=== PATIENT | male | born 1945 | race Caucasian/White ===

== ENCOUNTER 2020-06-21 21:42 | Emergency (ER) | payer SELFPAY ==
[2020-06-21 21:44] VITALS: BP 177/101; PULSE 95; RESP 20; TEMP 36.5; O2SAT 100
--- NOTE | 2020-06-21 21:59 | PC.NURSE ---
erp dr luo at bedside unable to obtain pulse. pt request slu instead of sandra.
--- NOTE | 2020-06-21 21:59 | ED.GENADULT ---
HPI - General Adult General Chief complaint: Extremity Problem,Nontraumatic Stated complaint: left leg pain Time Seen by Provider: 06/21/20 21:43 History of Present Illness HPI narrative: Patient is a 74-year-old male who presents the ER with sudden onset pain to the left calf. Began in the foot and radiates up into his left thigh. Patient cannot get comfortable. He applied BenGay to his calf and foot with no relief. Patient reports lower extremity is cold and tingly and discolored. Has not had similar issues in the past. Has not seen his primary care doctor in 10 years. Patient reports he cannot dorsiflex or plantarflex at the ankle. Related Data Home Medications Medication Instructions Recorded Confirmed No Home Medications 06/21/20 06/21/20 Allergies Allergy/AdvReac Type Severity Reaction Status Date / Time No Known Allergies Allergy Verified 06/21/20 21:49 Review of Systems Review of Systems: All systems reviewed & are unremarkable except as noted in HPI and below Constitutional: Constitutional: Denies chills, Denies fever(s) and Denies weakness Cardiovascular: Cardiovascular: Denies chest pain, Denies rapid heart rate and Denies radiating jaw, neck or arm pain Musculoskeletal: Comments: LLE pain Integumentary/Breasts: Comments: LLE pallor PMFSH Past Medical History Medical History (Updated 06/21/20 @ 23:22 by Nitesh Ann MD) Patient denies medical problems Surgical History Surgical History (Updated 06/21/20 @ 22:05 by Nitesh Ann MD) No history of previous surgery Exam Narrative: Exam Narrative: GENERAL: Well-appearing, well-nourished, and in no acute distress. HEAD: Normocephalic, atraumatic. ENT: Mucous membranes moist. CHEST: Clear to auscultation. No respiratory distress. HEART: Regular rate and rhythm. EXTREMITIES: Cool and pale left lower extremity when compared to the right below the knee. Unable to perform dorsiflexion plantarflexion left lower extremity. No dopplerable dorsalis pedis or posterior tibialis pulses. Faint popliteal pulse dopplered. Decreased sharp touch sensation over the dorsum of the foot as well as anterior her. SKIN: Warm, dry, no rash, with exception of the left lower extremity. NEURO: Alert and oriented x3. PSYCH: Normal mood and affect. Course Reevaluation(s) Reevaluation #1: I have called [facility] who is on diversion to the hospital and I have also contacted [facility]. I spoken with vascular surgeon there but the ER is also on diversion cannot accept any additional patients at this time. Patient is receiving heparin bolus as well as a heparin drip. He is being given morphine for pain. We will attempt to contact additional hospitals to accept this patient. While in the access line with [facility] I was able to confirm that both [facility] and [facility] would be unable to take this patient. Date: 06/21/20 Time: 22:17 Reevaluation #2: Mild decrease in pain after morphine and heparin. Reevaluation the foot shows a mottled purple appearance of the foot and side of right white. There is increased warmth and sensation to the her on the left side. Still without sensation over the dorsum of the foot. Very slight improvement in plantar flexion dorsiflexion. Date: 06/21/20 Time: 22:36 Reevaluation #3: [facility] has no beds and cannot accept the patient. Date: 06/21/20 Time: 22:56 Additional Reevaluation(s): 2313 - Patient has been accepted to [facility] by Dr. Kahn. I have also spoken with Dr. Meredith with vascular surgery who will care for the patient. 2326 - There is a minimum 2 hour wait for an ambulance, air medical transport is not flying due to weather, the patient is still with a pulseless foot with obvious evidence of ischemia. This is a time critical issue and I feel patient needs emergent transport so I have requested it. Additionally patient has an elevated troponin. He has no chest pain at any gareth
--- NOTE | 2020-06-21 22:02 | ECG_ITS ---
Measurements Intervals [place] Rate: 102 P: 38 UT: 195 QRS: -49 QRSD: 99 T: 125 QT: 365 QTc: 475 Interpretive Statements SINUS TACHYCARDIA CANNOT RULE OUT SEPTAL INFARCT, AGE INDETERMINATE LEFT ANTERIOR FASCICULAR BLOCK T WAVE ABNORMALITY IN ANT/HIGH LAT LEADS- CONSIDER ISCHEMIA BASELINE ARTIFACT- I, II, AVR, AVL ABNORMAL ECG Electronically Signed On 06-22-2020 6:57:49 CDT by Lenard Ellsworth D.O.
[2020-06-21] MEDS: MORPHINE SULFATE (*CRX) 4 MG/ML INJ IV PUSH (22:06)
[2020-06-21] MEDS: HEPARIN SODIUM 5,000 UNITS/ML VIAL 8000 UNITS IV PUSH (22:23)
[2020-06-21 22:32] LABS: Basophils Absolute Auto 0.1 K/mm3 (0.0-0.1); Basophils Percent Auto 0.5 % (0.2-1.2); Eosinophils Absolute Auto 0.1 K/mm3 (0-0.3); Hematocrit 46.5 % (42.0-52.0); Hemoglobin 15.8 g/dL (14.0-18.0); Immature Granulocyte Absolute 0.03 K/mm3 (0.00-0.031); Immature Granulocyte Percent A 0.2 % (0-0.5); Lymphocytes Absolute Auto 1.74 K/mm3 (0.9-3.2); Lymphocytes Percent Auto 13.9 % (18.3-44.2); Mean Corpuscular Hemoglobin 29.8 pg (26-34); Mean Corpuscular Volume 87.6 fl (80-100); Mean Platelet Volume 11.3 fl (7.4-10.4); Neutrophils Absolute Auto 9.6 K/mm3 (1.3-6.7); Neutrophils Percent Auto 76.4 % (45.5-73.1); Platelet Count Result 211 k/mm3 (150-375); Red Blood Count 5.31 M/mm3 (4.6-6.20); Red Cell Distribution Width 12.8 % (11.5-14.5); White Blood Count 12.5 K/mm3 (4.5-10.0)
[2020-06-21 22:41] LABS: INR 1.3; Prothrombin Time 15.5 Seconds (11.1-14.7)
[2020-06-21 22:42] LABS: Partial Thromboplastin Time 30.3 SECONDS (22.3-36.8)
[2020-06-21 22:43] LABS: Anion Gap 17 mmol/L (8-16); Blood Urea Nitrogen 22 mg/dL (9-20); Calcium 9.7 mg/dL (8.4-10.2); Carbon Dioxide 22 mmol/L (22-30); Chloride 101 mmol/L (98-107); Estimated CRCL calculation 51 ml/min; Estimated Glomerular Filt Rate 49; Glucose 124 mg/dL (75-110); Potassium 4.2 mmol/L (3.4-5.0); Sodium 140 mmol/L (137-145)
[2020-06-21] MEDS: HEPARIN SOD/D5W 100 UNITS/ML 25,000 UNITS/250 ML BAG 15 UNITS IV CONT (23:08)
[2020-06-21 23:23] LABS: Troponin I 0.251 ng/mL (0.000-0.034)
--- NOTE | 2020-06-21 23:28 | PC.NURSE ---
23:17...CALLED [facility] TO TRANSPORT PATIENT TO [facility]. ETA 01:15. RELAYED INFORMATION TO EDP, PATIENT HAS NO PULSE IN ISCHEMIC LIMB. CALLED [facility] BACK AND CHANGED TO [facility] PER REQUEST OF EDP.
[2020-06-21 23:29] VITALS: BP 156/84; PULSE 98; RESP 22; O2SAT 98
--- NOTE | 2020-06-21 23:32 | PC.NURSE ---
rn report given to Su, Charge Nurse for [facility].
[2020-06-21 23:49] VITALS: BP 142/118; PULSE 99; RESP 17; O2SAT 98
--- NOTE | 2020-06-21 23:50 | ECG_ITS ---
Measurements Intervals [place] Rate: 95 P: 60 NC: 193 QRS: -56 QRSD: 103 T: 139 QT: 376 QTc: 473 Interpretive Statements SINUS RHYTHM CANNOT RULE OUT SEPTAL INFARCT, AGE INDETERMINATE LEFT ANTERIOR FASCICULAR BLOCK T WAVE ABNORMALITY IN ANT/HIGH LAT LEADS- CONSIDER ISCHEMIA BASELINE ARTIFACT- I, III, AVR, AVL, AVF ABNORMAL ECG Electronically Signed On 06-22-2020 6:58:32 CDT by Lenard Ellsworth D.O.
== END 2020-06-21 23:45 | disposition short-term general hospital (02) ==
PROVIDERS: Emergency Provider Emergency Medicine; PCP Family Medicine Adolescent Medicine
DX: I99.8 Other disorder of circulatory system (principal); R00.0 Tachycardia, unspecified; R94.31 Abnormal electrocardiogram [ECG] [EKG]; I44.4 Left anterior fascicular block
CPT/HCPCS: 36415; 80048; 84484; 85025; 85610; 85730; 93005; 96365; 96375; 96376; 99285; J1644; J2270